=== PATIENT | female | born 1995 | race Caucasian/White ===

== ENCOUNTER 2022-03-04 18:27 | Outpatient (CLI) | payer SELFPAY ==
[2022-03-04 19:13] LABS: Glucose,Whole Blood 96 mg/dL (70-110)
[2022-03-04] MEDS: LACTATED RINGERS 1,000 ML IV SCH ×3 (19:20→21:49)
[2022-03-04 23:33] VITALS: BP 104/63; PULSE 140; RESP 16; TEMP 98.9
--- NOTE | 2022-03-07 08:59 | P.MSEPDOC ---
Presenting Problems - Arrival Data Date of Arrival on Unit: 03/04/22 Time of Arrival on Unit: 18:27 Mode of Transport: Wheelchair - Complaint OB-Reason for Admission/Chief Complaint: Possible Onset of Labor Comment: contractions since 1644, pt is DOM seeks care at [facility] Medical History - Information : 4 Para: 3 Term: 3 : 0 Abortions: Spontaneous or Elective: 0 Number of Living Children: 3 - Gestational Age Gestational Age by NENA (wks/days): 36 Weeks and 2 Days - History Complications: GDM Comment: diet controlled Review of Systems - Review of Systems Constitutional: No problems Breast: No problems ENT: Nasal congestion Cardiovascular: No problems Respiratory: No problems Gastrointestinal: No problems Genitourinary: No problems Musculoskeletal: No problems Neurological: No problems Skin: No problems Comment: tachycardia Vital Signs - Temperature Temperature: 98.9 F Temperature Source: Oral - Pulse Right Sitting Pulse Rate: 140 Pulse Assessment Method: Automatic Cuff - Respirations Respiratory Rate: 16 Oxygen Delivery Method: Room Air O2 Sat by Pulse Oximetry: 99 - Blood Pressure Right Arm Sitting Blood Pressure: 104/63 Blood Pressure Mean: 76 Blood Pressure Source: Automatic Cuff Medical Screen Scoring - Cervical Exam Dilation (cm): 2 Effacement (%): 50 Station: -3 Membranes: Intact - Uterine Contractions Frequency From (mins): 3 Frequency To (mins): 3 Duration From (seconds): 50 Duration To (seconds): 80 Intensity: Moderate - Assessment - Baby A Baseline FHR: 150 Heart Rate - NICHD Category: Category I (Normal) NST: Reactive Physician Notification - Physician Notified Physician Notified Date: 03/04/22 Physician Notified Time: 19:09 Physician: Alexandria Davis Order Received: Yes (IV hydration, check blood sugar, recheck cervix at 1 hour point.) - Notification Comment Comment: pt recieved 3 liters fluid and 2 glasses of water, pt was very dehydrated with tea colored urine, pt could not void until she recieved 2 liters of fluid. Maternal Triage Index - Maternal Triage Index Presenting for scheduled procedure w/no complaint: No - Stat/Priority 1 Stat Priority 1: No - Urgent/Priority 2 Urgent Priority 2: No - Prompt/Priority 3 Prompt Priority 3: Yes Criteria Met for Priority 3: Ryan given report of regular contractions and increased heart rate (1909) Disposition - Disposition OB Disposition: Physician follow up in office, Discharge to home, Written follow up instructions reviewed Discharge Date: 03/04/22 Discharge Time: 22:50 I agree with the RN Medical Screening Exam: Yes Case reviewed; plan agreed upon as documented in EMR&OBIX.: Yes Diagnosis: FALSE LABOR BEFORE 37 COMPLETED WEEKS OF GEST, THIRD TRI
== END 2022-03-04 22:50 | disposition home or self-care (01) ==
LOC: FBPOP 18:27
PROVIDERS: ATTEND Obstetrics & Gynecology
DX: O47.03 False labor before 37 completed weeks of gestation, third trimester (principal); Z3A.36 36 weeks gestation of pregnancy
CPT/HCPCS: 59025; 96360; 96361; 99214